=== PATIENT | male | born 1965 | race Caucasian/White ===

== ENCOUNTER 2022-03-05 16:29 | Inpatient (IN) ==
[2022-03-05] MEDS ORDERED: MORPHINE 2 MG/1 ML SYRINGE IV STA (17:02)
[2022-03-05] MEDS ORDERED: ASPIRIN 325 MG TABLET PO STA ×2 (17:02→17:31)
[2022-03-05] MEDS ORDERED: ONDANSETRON 4 MG/2 ML VIAL IV STA (17:02)
[2022-03-05 17:11] LABS: Basophils % 0.4 % (0.0-0.8); Eosinophils # 0.1 10*3/uL (0.0-0.87); Eosinophils % 1.3 % (0.00-10.9); Hematocrit 46.3 VOL% (42.0-52.0); Hemoglobin 16.1 GM/DL (14.0-18.0); Immature Granulocytes % 0.5 %; Immature Granulocytes Absolute 0.05 #; Lymphocytes # 1.3 10*3/uL (1.4-4.0); Mean Corpuscular HGB Conc 34.8 GM/DL (32-36); Mean Corpuscular Volume 88.2 FL (87-102); Mean Platelet Volume 12.1 FL (9.6-12.0); Monocytes # 0.6 10*3/uL (0.11-0.8); Monocytes % 5.9 % (1.7-12.7); Neutrophils % 77.9 % (38.7-73.9); Platelet Count 192 T/CUMM (130-400); Red Blood Count 5.25 MC/CUMM (3.8-5.5); Red Cell Distribution Width 12.2 % (9.3-17.3); White Blood Count 9.6 T/CUMM (4-12)
[2022-03-05 17:20] LABS: Calcium 9.5 MG/DL (8.5-10.1); Osmolality,Calculated 279.5 MOS/KG (273-304)
[2022-03-05] MEDS ORDERED: ENOXAPARIN 100 MG/ML SYRINGE SUBCUT STA (17:31)
[2022-03-05] MEDS ORDERED: hydrALAZINE 20 MG/1 ML VIAL IV STA (17:33)
[2022-03-05] MEDS ORDERED: NITROGLYCERIN 2% OINT 1 INCH/GM PACK TOP STA (18:21)
[2022-03-05] MEDS ORDERED: ONDANSETRON 4 MG/2 ML VIAL IV PRN (18:25)
[2022-03-05] MEDS ORDERED: hydrALAZINE 20 MG/1 ML VIAL IV PRN (18:29)
[2022-03-05] MEDS ORDERED: PHENOL 1.4% THROAT SPRAY 177 ML BOTTLE PO PRN (21:10)
[2022-03-05] MEDS: METOPROLOL TARTRATE 25 MG TABLET PO SCH (21:15)
[2022-03-05] MEDS: PANTOPRAZOLE 40 MG VIAL IV SCH (21:15)
[2022-03-05] MEDS: MORPHINE 2 MG/1 ML SYRINGE IV PRN (21:15)
[2022-03-05] MEDS: ENOXAPARIN 100 MG/ML SYRINGE SUBCUT SCH (21:16)
[2022-03-05] MEDS: tiZANidine 4 MG TABLET PO SCH (21:16)
[2022-03-06] MEDS: NITROGLYCERIN 2% OINT 1 INCH/GM PACK TOP SCH ×3 (01:10→18:15)
[2022-03-06 05:46] LABS: Basophils # 0.1 10*3/uL (0.0-0.2); Basophils % 0.4 % (0.0-0.8); Eosinophils # 0.2 10*3/uL (0.0-0.87); Eosinophils % 1.9 % (0.00-10.9); Hematocrit 45.2 VOL% (42.0-52.0); Hemoglobin 15.5 GM/DL (14.0-18.0); Immature Granulocytes % 0.4 %; Immature Granulocytes Absolute 0.05 #; Lymphocytes # 2.4 10*3/uL (1.4-4.0); Lymphocytes % 21.4 % (21.2-54.2); Mean Corpuscular HGB Conc 34.3 GM/DL (32-36); Mean Corpuscular Volume 89.9 FL (87-102); Mean Platelet Volume 12.2 FL (9.6-12.0); Monocytes # 1.1 10*3/uL (0.11-0.8); Monocytes % 9.8 % (1.7-12.7); Neutrophils % 66.1 % (38.7-73.9); Platelet Count 194 T/CUMM (130-400); Red Blood Count 5.03 MC/CUMM (3.8-5.5); Red Cell Distribution Width 12.6 % (9.3-17.3); White Blood Count 11.3 T/CUMM (4-12)
[2022-03-06 06:02] LABS: Calcium 9.4 MG/DL (8.5-10.1); Osmolality,Calculated 277.5 MOS/KG (273-304); Potassium 4.3 MMOL/L (3.5-5.1); Risk Ratio 1.98; Thyroid Stimulating Hormone 1.58 uIU/ml (0.358-3.74); VLDL Cholesterol 17.8 MG/DL
[2022-03-06] MEDS: PANTOPRAZOLE 40 MG VIAL IV SCH ×2 (09:01→20:00)
[2022-03-06] MEDS: ENOXAPARIN 100 MG/ML SYRINGE SUBCUT SCH (09:28)
[2022-03-06] MEDS: ASPIRIN EC 81 MG TABLET PO SCH (09:29)
[2022-03-06] MEDS: METOPROLOL TARTRATE 25 MG TABLET PO SCH ×2 (09:29→20:00)
[2022-03-06] MEDS: ATORVASTATIN 40 MG TABLET PO SCH (09:29)
[2022-03-06] MEDS ORDERED: DIAZEPAM 5 MG TABLET PO ONE (09:53)
[2022-03-06] MEDS ORDERED: MAGNESIUM SULF RIDER 2 GM/50 ML PREMIX IV PRN (09:53)
[2022-03-06] MEDS ORDERED: POTASSIUM CHLORIDE RIDER 10 MEQ/100 ML PREMIX IV PRN (09:53)
[2022-03-06] MEDS ORDERED: diphenhydrAMINE CAP 25 MG CAPSULE PO ONE (09:53)
[2022-03-06] MEDS ORDERED: diphenhydrAMINE CAP 25 MG CAPSULE ONE (09:58)
[2022-03-06] MEDS ORDERED: DIAZEPAM 5 MG TABLET ONE (09:59)
[2022-03-06] MEDS: SODIUM CHLORIDE 0.9% 1,000 ML IV SCH ×2 (10:16→21:15)
[2022-03-06] MEDS ORDERED: HEPARIN/NACL 0.9% 2 UNITS/ML 2,000 UNIT/1,000 ML BAG IV ONE (10:20)
[2022-03-06] MEDS ORDERED: fentaNYL 100 MCG/2 ML VIAL ONE (10:44)
[2022-03-06] MEDS ORDERED: MIDAZOLAM 2 MG/2 ML VIAL ONE ×2 (10:44→11:03)
[2022-03-06] MEDS ORDERED: ACETAMINOPHEN 325 MG TABLET PO PRN (11:39)
[2022-03-06] MEDS: MORPHINE 2 MG/1 ML SYRINGE IV PRN (14:55)
[2022-03-06] MEDS: oxyCODONE IR 5 MG TABLET PO PRN ×2 (15:57→20:00)
[2022-03-06] MEDS: tiZANidine 4 MG TABLET PO SCH (20:00)
[2022-03-07 05:21] LABS: Basophils # 0.1 10*3/uL (0.0-0.2); Basophils % 0.6 % (0.0-0.8); Eosinophils # 0.3 10*3/uL (0.0-0.87); Eosinophils % 3.2 % (0.00-10.9); Hematocrit 44.1 VOL% (42.0-52.0); Hemoglobin 14.7 GM/DL (14.0-18.0); Immature Granulocytes % 0.3 %; Immature Granulocytes Absolute 0.03 #; Lymphocytes # 2.2 10*3/uL (1.4-4.0); Lymphocytes % 22.2 % (21.2-54.2); Mean Corpuscular HGB Conc 33.3 GM/DL (32-36); Mean Corpuscular Volume 91.7 FL (87-102); Monocytes % 9.4 % (1.7-12.7); Neutrophils % 64.3 % (38.7-73.9); Platelet Count 195 T/CUMM (130-400); Red Blood Count 4.81 MC/CUMM (3.8-5.5); Red Cell Distribution Width 12.6 % (9.3-17.3); White Blood Count 10.1 T/CUMM (4-12)
[2022-03-07 05:26] LABS: Calcium 8.2 MG/DL (8.5-10.1); Osmolality,Calculated 277.7 MOS/KG (273-304); Potassium 3.7 MMOL/L (3.5-5.1)
[2022-03-07] MEDS: NITROGLYCERIN 2% OINT 1 INCH/GM PACK TOP SCH ×3 (05:58→17:19)
[2022-03-07] MEDS: SODIUM CHLORIDE 0.9% 1,000 ML IV SCH (07:45)
[2022-03-07] MEDS: oxyCODONE IR 5 MG TABLET PO PRN ×2 (09:18→16:57)
[2022-03-07] MEDS: METOPROLOL TARTRATE 25 MG TABLET PO SCH (09:19)
[2022-03-07] MEDS: ATORVASTATIN 40 MG TABLET PO SCH (09:19)
[2022-03-07] MEDS: ASPIRIN EC 81 MG TABLET PO SCH (09:20)
[2022-03-07] MEDS: PANTOPRAZOLE 40 MG VIAL IV SCH (09:20)
[2022-03-07] MEDS ORDERED: POLYETHYLENE GLYCOL POWDER 17 GM PACK PO SCH (10:14)
[2022-03-07] MEDS ORDERED: HEPARIN DRIP 25,000 UNITS/500 ML PREMIX IV SCH (10:30)
[2022-03-07] MEDS ORDERED: DOCUSATE SODIUM 100 MG CAPSULE PO SCH (10:30)
[2022-03-07 18:55] VITALS: BP 145/73
== END 2022-03-07 19:05 | disposition hospice, home (50) | DRG 281 ==
LOC: N.ED 16:29 → N.EDINP 18:25 → SUATTDRO 18:25 → N.TELES 18:49 → N.CC 03-06 12:09 → N.TELES 03-06 20:12
PROVIDERS: ADMIT Internal Medicine; ATTEND Emergency Medicine